=== PATIENT | female | born 1955 | race Caucasian/White ===

== ENCOUNTER 2019-04-24 11:28 | Emergency (ER) | payer OTHER ==
[~2019-04-24] VITALS: Ht 149.9 cm; Wt 85.5 kg
[~2019-04-24 11:28] MED LIST: ALBU8.5H8 INH; AZIT250T PO
[2019-04-24 11:31] VITALS: BP 135/91; PULSE 98; RESP 17; Ht 149.9 cm; Wt 85.5 kg
[2019-04-24] MEDS ORDERED: IPRATROPIUM (NEB) 0.5 MG/2.5 ML AMP NEB STA (13:45)
[2019-04-24] MEDS ORDERED: ALBUTEROL 0.083% (NEB) 2.5 MG/3 ML AMP NEB STA (13:45)
[2019-04-24] MEDS ORDERED: DEXAMETHASONE 10 MG/ML 1 ML INJ PO ONE (14:00)
== END 2019-04-24 14:38 | disposition home or self-care (01) ==
LOC: FTE 11:28
DX: J20.9 Acute bronchitis, unspecified (principal); J45.901 Unspecified asthma with (acute) exacerbation
CPT/HCPCS: 94664; J1100; Z7502; Z7610